=== PATIENT | female | born 1970 | race Caucasian/White ===

== ENCOUNTER 2025-04-05 17:30 | Outpatient (RCR) | payer BC, SELFPAY ==
--- NOTE | 2025-02-28 18:48 | HP.PTEVAL_ITS ---
Patient's Visit Information Visit Information Visit Information: PAVEL ROSARIO is a 55 year old F referred to Physical Therapy by ЕЛЕНА Shah with a diagnosis of Left Patella Fx. Date of Evaluation: 02/28/25 Physical Therapist: Fallon Boyce DPT Visit Plan Frequency: 1x/Week Duration: 6 Weeks Plan: Focus on ROM, strength and functional mobility Focus on a HEP due to co-pay- HEP Given IE: quad set, seated heel slide, standing step stretch Subjective Subjective: Patient reports that she fell on her knee-January 22, 2025- fractured her patella- it was broken before but she thinks that its broken again. What broke off is a piece of arthritis. They gave her a long extension brace for 6 weeks- she went to [facility] they gave her a long leg hinge brace and put her at 40 degrees of flexion. She stops at the point of pain due to fear or breaking it again. 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 She is unclear of how far she is allowed to bend it at this point. She reports that she has swelling. She wears the brace at night. She only takes it off to shower. She ices in the mornings. The pain is located around the whole knee. She is very nervous to use it. She had an 8/10 on Wednesday with burning along the kneecap. 3/10 soreness. Sleep: the brace but not he pain wakes her up. PMHx/meds: see list in chart. Objective Objective: Posture: forward head, rounded shoulders- can correct with verbal cues Gait: antalgic- long leg brace locked into extension on left LE- guarded HR/TR: able with UE A SLS: weight shift Palpation: tender along medial and lateral joint line ROM: 0-60 degrees Girth: Patella: 42.5 cm Strength: Core: fair, Hip: 4+/5 throughout, Knee: quad set visible, Ankle: 5/5 Flex: HS: severe, gastroc: severe, Solues: severe Balance/Special Test Scores Lower Extremity Functional Score: 19 Goals Goal 1:: Patient will be I with HEP and progression Goal Time Frame: 6-8 Weeks Goal 2:: Patient will ambulate >150 feet with a normalized gait pattern Goal Time Frame: 6-8 Weeks Goal 3:: Patient will demo 0-125 degrees of ROM of the left knee Goal Time Frame: 6-8 Weeks Goal 4:: Patient will demo a normalized squat Goal Time Frame: 6-8 Weeks Goal 5:: Patient will report 80% improvement Goal Time Frame: 6-8 Weeks Rehabilitation Potential Physical Therapy Diagnosis: Patient presents with hypomobility- she has decreased ROM, strength, flex and muscular endurance leading to abnormal gait pattern and decreased ability to perform ADL's Rehabilitation Potential: Fair Anticipated Interventions Patient/Client Instruction: Educate patient on: Benefits of Fitness Program Therapeutic Exercise to Include: Strength training, Endurance training, Balance training, Coordination, Agility training, Body mechanics, Postural training, Flexibilty training, Gait and locomotor training, Neuromotor development, Passive ROM, Active ROM, Dynamic Lumbar Stabilization and Scapular Strength/Stabilization Functional Training to Include: Gait training Manual Therapy Techniques to Include: Mobilization, Passive ROM and Soft tissue mobilization TENS: Yes Cryotherapy (ice pack, ice massage): Yes Thermo therapy (hot pack): Yes Ultrasound (thermal/non thermal): Yes Text: Thank you for the opportunity to evaluate your patient. For Medicare and Medicare HMO plans, please review the plan of care and approve it. It will need to be FAXED BACK to us at [phone] for Medicare purposes. For Medicare only, by signing this I certify the plan of care. Please let me know if there are questions or concerns regarding this plan of care. Physician Signature: Date:
--- NOTE | 2025-04-05 18:00 | HP.PTDCSUM ---
Discharge Summary D/C summary: It has been my pleasure to treat PAVEL ROSARIO referred by ЕЛЕНА Shah, with the diagnosis of Left Patella Fx for a total of 6 visit(s). Discharge Date: 04/05/25 Please see the following information for a summary of their discharge status. Subjective Subjective: Doing HEP faithfully. Pain is minimal, sometimes with crossing legs. WB not a problem. Activities ar pretty normal, walked dog 128# and did well. Sleep is Ok. wore brace. Working normal job. Wants to play pickleball again and wants to workout. [employer] member on rowing machine and TM mostly CV. 30 praelvr8t/week. Overall Improvement % Improvement: 90 Objective Objective/Function: 0-144 AROM L knee, no pain, some tightness in L quad above patella mildly. walks normal, steps reciprocal without rail Able to squat although slight favoring L leg which improves with repetition adn no pain. Goals Goal 1:: Patient will be I with HEP and progression Goal Progress: Goal Met Goal 2:: Patient will ambulate >150 feet with a normalized gait pattern Goal Progress: Goal Met Goal 3:: Patient will demo 0-125 degrees of ROM of the left knee Goal Progress: Goal Met Goal 4:: Patient will demo a normalized squat Goal Progress: Goal Met Goal 5:: Patient will report 80% improvement Goal Progress: Goal Met Plan Plan: d/c to HEP D/C Information Discharge Comments: To doctor in a few weeks. d/c sentence: If there are questions or concerns regarding this patient's physical therapy, please feel free to call me at [phone]. Thank you for the referral of this patient. Sincerely, Miguel A Villarreal, DPT, OCS, CSCS Balance/Gait/Functional tests Balance/Special Test Scores Lower Extremity Functional Score: 70 Improvement % Improvement: 90
== END 2025-04-05 19:00 | disposition home or self-care (01) ==
LOC: PT 17:30
PROVIDERS: PCP Family Medicine; Referring Provider Physician Assistant Surgical; Visit Provider Physician Assistant Surgical
DX: S82.035D Nondisplaced transverse fracture of left patella, subsequent encounter for closed fracture with routine healing (principal); M25.562 Pain in left knee
CPT/HCPCS: 97110; 97162; 97530